=== PATIENT | female | born 1955 | race African-American/Black ===

== ENCOUNTER 2019-10-12 12:37 | Outpatient (CLI) | payer OTHER, SELFPAY ==
[2019-10-12 13:19] LABS: Hematocrit 36.6 % (37.0-47.0); Hemoglobin 10.9 g/dL (12.0-15.0); Mean Corpuscular HGB Conc 29.8 g/dl (32-36); Mean Corpuscular Hemoglobin 23.5 pg (26-34); Mean Platelet Volume 10.7 fl (7.4-10.4); Platelet Count Result 240 k/mm3 (150-375); Red Blood Count 4.63 M/mm3 (4.2-5.4); Red Cell Distribution Width 12.1 % (11.5-14.5); White Blood Count 5.6 K/mm3 (4.5-10.0)
[2019-10-12 13:29] LABS: Alanine Aminotransferase 13 U/L (4-35); Albumin Level 4.6 g/dL (3.5-5.1); Alkaline Phosphatase 52 U/L (38-126); Aspartate Amino Transferase 19 U/L (14-36); Bilirubin,Total 0.4 mg/dL (0.2-1.3); Blood Urea Nitrogen 13 mg/dL (7-17); Calcium 9.9 mg/dL (8.4-10.2); Carbon Dioxide 31 mmol/L (22-30); Chloride 102 mmol/L (98-107); Estimated Glomerular Filt Rate > 60; Glucose 132 mg/dL (65-105); Potassium 3.6 mmol/L (3.4-5.0); Sodium 140 mmol/L (137-145)
[2019-10-12 14:19] LABS: Vitamin D 25 Hydroxy 51.9 ng/mL
[2019-10-12 14:33] LABS: Thyroid Stimulating Hormone Reflex 0.753 uIU/mL (0.465-4.68)
== END 2019-10-12 12:38 | disposition home or self-care (01) ==
DX: R43.0 Anosmia (principal); E55.9 Vitamin D deficiency, unspecified
CPT/HCPCS: 36415; 80053; 82306; 84443; 85027; 86038